=== PATIENT | female | born 1960 | race Caucasian/White ===

== ENCOUNTER 2016-08-05 12:49 | Outpatient (RCR) | payer OTHER ==
[2016-08-28] MEDS ORDERED: CYMBALTA 20MG20 MG PO (11:11)
[2016-08-28] MEDS ORDERED: COZAAR 50MG50 MG/TAB PO (11:12)
[2016-08-28] MEDS ORDERED: GLUCOPHAGE500 MG/TAB PO ×2 (11:12→11:13)
[2016-08-28] MEDS ORDERED: MOTRIN 200200 MG/TAB PO (11:13)
[2016-08-28] MEDS ORDERED: PRAVACHOL10 MG PO (11:13)
[2016-09-02] MEDS ORDERED: PRAVACHOL10 MG PO (18:54)
[2016-09-02] MEDS ORDERED: DECADRON 4MG TAB4 MG PO (18:55)
[2016-09-02] MEDS ORDERED: FOLIC ACID 11 MG/TA1 PO (18:56)
[2016-09-02] MEDS ORDERED: PEPCID 20MG TAB20 MG PO (18:56)
[2016-09-02] MEDS ORDERED: KEPPRA 500MG500 MG PO (18:57)
[2016-09-02] MEDS ORDERED: CYMBALTA 60MG60 MG PO (18:59)
[2016-09-02] MEDS ORDERED: XANAX 0.5MG0.5 MG PO (19:00)
[2016-09-02] MEDS ORDERED: NATURE'S BLEND100 M2 PO (19:02)
[2016-09-02] MEDS ORDERED: NICODERM C21 MG/PATC TD (19:02)
[2016-09-02] MEDS ORDERED: COLACE 100100 MG/CAP PO (19:03)
[2016-09-03] MEDS ORDERED: COREG 3.123.125 MG/T PO (18:21)
[2016-09-03] MEDS ORDERED: NOVOLOG FLEX100 U/ML SQ (18:21)
[2016-09-03] MEDS ORDERED: ZESTRIL2.5 MG PO (18:22)
[2016-09-03] MEDS ORDERED: THERAGRAN TAB1 UDTAB PO (18:23)
[2016-10-07] MEDS ORDERED: PEPCID 20MG TAB20 MG PO (10:23)
[2016-10-07] MEDS ORDERED: TYLENOL W/COD1 UDTAB PO (10:27)
== END 2016-11-03 ==
LOC: WSOH
DX: M25.521 Pain in right elbow (principal); S46.811A Strain of other muscles, fascia and tendons at shoulder and upper arm level, right arm, initial encounter; X50.3XXA Overexertion from repetitive movements, initial encounter; Y99.0 Civilian activity done for income or pay

== ENCOUNTER 2016-08-28 10:57 | Emergency (ER) | payer OTHER ==
[~2016-08-28] VITALS: Ht 177.8 cm; Wt 81.8 kg
[2016-08-28 10:58] VITALS: BP 190/102; TEMP 98
[2016-08-28] MEDS ORDERED: CYMBALTA 20MG20 MG PO (11:11)
[2016-08-28] MEDS ORDERED: GLUCOPHAGE500 MG/TAB PO ×2 (11:12→11:13)
[2016-08-28] MEDS ORDERED: COZAAR 50MG50 MG/TAB PO (11:12)
[2016-08-28] MEDS ORDERED: PRAVACHOL10 MG PO (11:13)
[2016-08-28] MEDS ORDERED: MOTRIN 200200 MG/TAB PO (11:13)
[2016-08-28 11:49] LABS: BASO # 0.1 (0.0-0.2); BASO % 1.2 % (0.0-2.0); EOS % 0.3 % (0-4.0); GRAN # 9.1 (1.4-6.5); GRAN % 85.4 % (42.2-75.2); HEMATOCRIT 39.7 % (37.0-47.0); HEMOGLOBIN 13.5 g/dl (12.5-16.0); LYMPH # 0.7 (1.2-3.4); LYMPH % 6.8 % (20.0-51.0); MEAN CELL VOLUME 102 fl (80.0-100.0); MEAN CORPUSCULAR HEMOGLOBIN 35 pg (27.0-31.0); MEAN CORPUSCULAR HGB CONC 34 g/dl (33.0-37.0); MEAN PLATELET VOLUME 10.9 fl (7.4-10.4); MONO # 0.6 (0.1-0.6); MONO % 5.8 % (1.7-9.3); PLATELET COUNT 209 K/mm3 (130-400); RED BLOOD COUNT 3.89 M/mm3 (4.10-5.30); REDCELL DISTRIBUTION WIDTH-CV 14.6 % (11.5-14.5); WHITE BLOOD COUNT 10.7 K/mm3 (4.8-10.8)
[2016-08-28 12:16] LABS: ADJUSTED CALCIUM 10.8 mg/dL (8.4-10.2); ALANINE AMINOTRANSFERASE 32 U/L (9-52); ALBUMIN 4.6 gm/dL (3.5-5.0); ALKALINE PHOSPHATASE 96 U/L (50-136); ANION GAP 24 mmol/L (7-16); BILIRUBIN,TOTAL 0.9 mg/dL (0.0-1.0); BLOOD UREA NITROGEN 19 mg/dL (7-17); CALCIUM 11.3 mg/dL (8.4-10.2); CARBON DIOXIDE 17 mmol/L (22-30); CHLORIDE 94 mmol/L (98-107); CREATININE, serum 1.07 mg/dL (0.52-1.25); GLUCOSE 248 mg/dL (74-106); POTASSIUM 5.6 mmol/L (3.4-5.0); SODIUM 135 mmol/L (137-145); TOTAL PROTEIN 7.5 gm/dL (6.4-8.2)
[2016-08-28 12:27] LABS: TROPONIN-I 0.015 ng/mL (0.000-0.034)
[2016-08-28 12:30] VITALS: PULSE 114
[2016-08-28 12:50] LABS: PROLACTIN 27.9 ng/mL (3.0-18.6)
== END 2016-08-28 13:08 | disposition short-term general hospital (02) ==
LOC: COL.ER 10:57
PROVIDERS: Emergency Medicine
DX: R55 Syncope and collapse (principal); R93.8 Abnormal findings on diagnostic imaging of other specified body structures; I10 Essential (primary) hypertension; E11.9 Type 2 diabetes mellitus without complications; R00.0 Tachycardia, unspecified; V47.5XXA Car driver injured in collision with fixed or stationary object in traffic accident, initial encounter; Y92.414 Local residential or business street as the place of occurrence of the external cause
CPT/HCPCS: J2060; J7030

== ENCOUNTER 2016-09-02 17:04 | Observation (INO) | payer OTHER ==
[~2016-09-02] VITALS: Ht 177.8 cm; Wt 87.3 kg
[2016-09-02] VITALS (120 sets, daily range): BP systolic 120–142; BP diastolic 83–100; PULSE 83–102; TEMP 98; O2SAT 95–100
[~2016-09-02 17:04] MED LIST: COZAAR 50MG50 MG/TAB PO; CYMBALTA 20MG20 MG PO; GLUCOPHAGE500 MG/TAB PO; MOTRIN 200200 MG/TAB PO; PRAVACHOL10 MG PO
[2016-09-02 18:52] LABS: BASO % 0.2 % (0.0-2.0); EOS % 0.2 % (0-4.0); GRAN # 11.1 (1.4-6.5); GRAN % 83.8 % (42.2-75.2); HEMATOCRIT 35.7 % (37.0-47.0); HEMOGLOBIN 12.2 g/dl (12.5-16.0); LYMPH # 0.9 (1.2-3.4); LYMPH % 6.9 % (20.0-51.0); MEAN CELL VOLUME 101 fl (80.0-100.0); MEAN CORPUSCULAR HEMOGLOBIN 35 pg (27.0-31.0); MEAN CORPUSCULAR HGB CONC 34 g/dl (33.0-37.0); MEAN PLATELET VOLUME 10.6 fl (7.4-10.4); MONO # 1.1 (0.1-0.6); MONO % 8.3 % (1.7-9.3); PLATELET COUNT 164 K/mm3 (130-400); RED BLOOD COUNT 3.53 M/mm3 (4.10-5.30); REDCELL DISTRIBUTION WIDTH-CV 14.5 % (11.5-14.5); WHITE BLOOD COUNT 13.3 K/mm3 (4.8-10.8)
[2016-09-02] MEDS ORDERED: PRAVACHOL10 MG PO (18:54)
[2016-09-02] MEDS ORDERED: DECADRON 4MG TAB4 MG PO (18:55)
[2016-09-02] MEDS ORDERED: PEPCID 20MG TAB20 MG PO (18:56)
[2016-09-02] MEDS ORDERED: FOLIC ACID 11 MG/TA1 PO (18:56)
[2016-09-02] MEDS ORDERED: KEPPRA 500MG500 MG PO (18:57)
[2016-09-02] MEDS ORDERED: CYMBALTA 60MG60 MG PO (18:59)
[2016-09-02] MEDS ORDERED: XANAX 0.5MG0.5 MG PO (19:00)
[2016-09-02 19:01] LABS: ADJUSTED CALCIUM 9.2 mg/dL (8.4-10.2); ALBUMIN 3.7 gm/dL (3.5-5.0); BILIRUBIN,TOTAL 0.6 mg/dL (0.0-1.0); CREATININE, serum 1.17 mg/dL (0.52-1.25); POTASSIUM 3.9 mmol/L (3.4-5.0); TOTAL PROTEIN 6.4 gm/dL (6.4-8.2)
[2016-09-02] MEDS ORDERED: NATURE'S BLEND100 M2 PO (19:02)
[2016-09-02] MEDS ORDERED: NICODERM C21 MG/PATC TD (19:02)
[2016-09-02] MEDS ORDERED: COLACE 100100 MG/CAP PO (19:03)
[2016-09-02 19:33] LABS: MAGNESIUM 1.6 mg/dL (1.6-2.3)
[2016-09-03] VITALS (380 sets, daily range): BP systolic 127–168; BP diastolic 64–98; PULSE 81–99; TEMP 97.3–97.6; O2SAT 89–100
[2016-09-03 06:57] LABS: B-TYPE NATRIURETIC PEPTIDE 3340 pg/mL (0-125)
[2016-09-03 07:00] LABS: TROPONIN-I < 0.012 ng/mL (0.000-0.034)
[2016-09-03] MEDS ORDERED: NOVOLOG FLEX100 U/ML SQ (18:21)
[2016-09-03] MEDS ORDERED: COREG 3.123.125 MG/T PO (18:21)
[2016-09-03] MEDS ORDERED: ZESTRIL2.5 MG PO (18:22)
[2016-09-03] MEDS ORDERED: THERAGRAN TAB1 UDTAB PO (18:23)
== END 2016-09-03 20:00 | disposition home or self-care (01) ==
LOC: COL.ER 17:04 → ICU 18:07
PROVIDERS: Emergency Medicine; Internal Medicine
DX: I42.9 Cardiomyopathy, unspecified (principal); F17.210 Nicotine dependence, cigarettes, uncomplicated; E11.9 Type 2 diabetes mellitus without complications; Z79.84 Long term (current) use of oral hypoglycemic drugs; I10 Essential (primary) hypertension
CPT/HCPCS: G0378; J2060; J3475; J8540

== ENCOUNTER → 2016-09-05 | Outpatient (CLI) | payer OTHER ==
[~2016-09-05] VITALS: Ht 177.8 cm; Wt 86.8 kg
[~2016-09-05] MED LIST changes: +COLACE 100100 MG/CAP PO; +COREG 3.123.125 MG/T PO; +CYMBALTA 60MG60 MG PO; +DECADRON 4MG TAB4 MG PO; +FOLIC ACID 11 MG/TA1 PO; +KEPPRA 500MG500 MG PO; +NATURE'S BLEND100 M2 PO; +NICODERM C21 MG/PATC TD; +NOVOLOG FLEX100 U/ML SQ; +PEPCID 20MG TAB20 MG PO; +THERAGRAN TAB1 UDTAB PO; +TYLENOL W/COD1 UDTAB PO; +XANAX 0.5MG0.5 MG PO; +ZESTRIL2.5 MG PO
[2016-09-05 08:07] VITALS: BP 134/84; PULSE 86
[2016-09-05 09:28] VITALS: BP 146/83; PULSE 80
[2016-09-05 09:29] VITALS: BP 125/64; PULSE 118
[2016-09-05 09:30] VITALS: BP 150/77; PULSE 110
[2016-09-05 09:32] VITALS: BP 141/78; PULSE 98
== END ==
LOC: COL.CARD 07:45
DX: I49.8 Other specified cardiac arrhythmias (principal); R94.39 Abnormal result of other cardiovascular function study
CPT/HCPCS: A9502; J2785

== ENCOUNTER 2016-10-07 09:39 | Day surgery (SDC) | payer OTHER ==
[2016-10-07] VITALS (8 sets, daily range): BP systolic 123–146; BP diastolic 73–92; PULSE 82–104; TEMP 98.4–99.7
[~2016-10-07] VITALS: Ht 177.8 cm; Wt 86.0 kg
[~2016-10-07 09:39] MED LIST changes: -TYLENOL W/COD1 UDTAB PO
[2016-10-07 10:16] LABS: HEMATOCRIT 38.8 % (37.0-47.0); HEMOGLOBIN 13.2 g/dl (12.5-16.0); MEAN CELL VOLUME 100 fl (80.0-100.0); MEAN CORPUSCULAR HEMOGLOBIN 34 pg (27.0-31.0); MEAN CORPUSCULAR HGB CONC 34 g/dl (33.0-37.0); MEAN PLATELET VOLUME 10.2 fl (7.4-10.4); PLATELET COUNT 297 K/mm3 (130-400); REDCELL DISTRIBUTION WIDTH-CV 12.9 % (11.5-14.5); WHITE BLOOD COUNT 7.8 K/mm3 (4.8-10.8)
[2016-10-07] MEDS ORDERED: PEPCID 20MG TAB20 MG PO (10:23)
[2016-10-07 10:25] LABS: CALCIUM 10.1 mg/dL (8.4-10.2); CREATININE, serum 1.14 mg/dL (0.52-1.25); POTASSIUM 4.4 mmol/L (3.4-5.0)
[2016-10-07] MEDS ORDERED: TYLENOL W/COD1 UDTAB PO (10:27)
[2016-10-07 10:32] LABS: PROTHROMBIN TIME 10.5 SECONDS (9.7-12.8)
== END 2016-10-07 15:54 | disposition home or self-care (01) ==
LOC: COL.CAR 09:39
PROVIDERS: Internal Medicine Cardiovascular Disease
DX: I42.9 Cardiomyopathy, unspecified (principal); F17.200 Nicotine dependence, unspecified, uncomplicated; I11.0 Hypertensive heart disease with heart failure; I50.9 Heart failure, unspecified; E11.9 Type 2 diabetes mellitus without complications; E78.5 Hyperlipidemia, unspecified; Z86.011 Personal history of benign neoplasm of the brain; Z79.84 Long term (current) use of oral hypoglycemic drugs; Z79.899 Other long term (current) drug therapy
CPT/HCPCS: C1769; C1887; C1894; J1644; J2250; J3010; Q9967

== ENCOUNTER → 2016-11-24 | Outpatient (CLI) | payer OTHER ==
[~2016-11-24] MED LIST changes: +TYLENOL W/COD1 UDTAB PO
== END ==
LOC: COL.RAD 09:49
DX: R91.8 Other nonspecific abnormal finding of lung field (principal)
CPT/HCPCS: Q9967

== ENCOUNTER → 2017-04-29 | Outpatient (CLI) | payer SELFPAY | LOC: COL.RAD 07:38 | DX: Z01.812 Encounter for preprocedural laboratory examination (principal); G93.89 Other specified disorders of brain; D32.9 Benign neoplasm of meninges, unspecified; Z98.890 Other specified postprocedural states | CPT/HCPCS: A9585 ==

== ENCOUNTER → 2017-05-12 | Outpatient (CLI) | payer SELFPAY | LOC: MHCPAIN 14:04 | DX: G89.29 Other chronic pain (principal); M47.812 Spondylosis without myelopathy or radiculopathy, cervical region; M96.1 Postlaminectomy syndrome, not elsewhere classified; F17.200 Nicotine dependence, unspecified, uncomplicated | CPT/HCPCS: G0463 ==

== ENCOUNTER → 2017-05-26 | Outpatient (CLI) | payer SELFPAY | LOC: COL.RAD 12:39 | DX: R91.1 Solitary pulmonary nodule (principal); J98.4 Other disorders of lung | CPT/HCPCS: Q9967 ==

== ENCOUNTER → 2017-06-04 | Outpatient (CLI) | payer SELFPAY | LOC: MHCPAIN 08:39 | DX: M50.123 Cervical disc disorder at C6-C7 level with radiculopathy (principal); M99.51 Intervertebral disc stenosis of neural canal of cervical region; M25.78 Osteophyte, vertebrae; Z98.1 Arthrodesis status | CPT/HCPCS: J1100; J2250; J3010; Q9967 ==

== ENCOUNTER → 2017-06-23 | Outpatient (CLI) | payer SELFPAY | LOC: MHCPAIN 09:13 | DX: G89.29 Other chronic pain (principal); M50.122 Cervical disc disorder at C5-C6 level with radiculopathy; M96.1 Postlaminectomy syndrome, not elsewhere classified; F17.200 Nicotine dependence, unspecified, uncomplicated | CPT/HCPCS: G0463 ==

== ENCOUNTER → 2017-07-23 | Outpatient (CLI) | payer SELFPAY | LOC: MHCPAIN 13:08 | DX: M50.122 Cervical disc disorder at C5-C6 level with radiculopathy (principal); M99.51 Intervertebral disc stenosis of neural canal of cervical region; Z98.1 Arthrodesis status | CPT/HCPCS: J1100; J2250; J3010; Q9967 ==

== ENCOUNTER → 2017-08-14 | Outpatient (CLI) | payer SELFPAY | LOC: MHCPAIN 10:15 | DX: G89.29 Other chronic pain (principal); M50.90 Cervical disc disorder, unspecified, unspecified cervical region; M54.12 Radiculopathy, cervical region; M96.1 Postlaminectomy syndrome, not elsewhere classified | CPT/HCPCS: G0463 ==

== ENCOUNTER → 2017-10-12 | Outpatient (CLI) | payer SELFPAY | LOC: MHCPAIN 09:53 | DX: G89.29 Other chronic pain (principal); M50.90 Cervical disc disorder, unspecified, unspecified cervical region; M54.12 Radiculopathy, cervical region; R51 Headache; M96.1 Postlaminectomy syndrome, not elsewhere classified | CPT/HCPCS: G0463 ==

== ENCOUNTER → 2017-12-14 | Outpatient (CLI) | payer SELFPAY | LOC: MHCPAIN 10:14 | DX: G89.29 Other chronic pain (principal); M50.90 Cervical disc disorder, unspecified, unspecified cervical region; M54.12 Radiculopathy, cervical region; M54.81 Occipital neuralgia; R51 Headache; M96.1 Postlaminectomy syndrome, not elsewhere classified | CPT/HCPCS: G0463 ==

== ENCOUNTER → 2018-02-16 | Outpatient (CLI) | payer MEDICARE | LOC: MHCPAIN 08:57 | DX: G89.29 Other chronic pain (principal); M50.90 Cervical disc disorder, unspecified, unspecified cervical region; M54.12 Radiculopathy, cervical region; M96.1 Postlaminectomy syndrome, not elsewhere classified | CPT/HCPCS: G0463 ==

== ENCOUNTER → 2018-04-13 | Outpatient (CLI) | payer MEDICARE, OTHER | LOC: MHCPAIN 09:31 | DX: G89.29 Other chronic pain (principal); M50.90 Cervical disc disorder, unspecified, unspecified cervical region; M54.12 Radiculopathy, cervical region; M54.81 Occipital neuralgia | CPT/HCPCS: G0463 ==

== ENCOUNTER → 2018-06-09 | Outpatient (CLI) | payer MEDICARE, OTHER | LOC: MHCPAIN 09:27 | DX: G89.29 Other chronic pain (principal); M54.12 Radiculopathy, cervical region; M54.81 Occipital neuralgia; R51 Headache; M47.812 Spondylosis without myelopathy or radiculopathy, cervical region | CPT/HCPCS: G0463 ==

== ENCOUNTER → 2018-08-10 | Outpatient (CLI) | payer MEDICARE, OTHER | LOC: MHCPAIN 09:33 | DX: G89.29 Other chronic pain (principal); M54.12 Radiculopathy, cervical region; R51 Headache; M47.812 Spondylosis without myelopathy or radiculopathy, cervical region; M96.1 Postlaminectomy syndrome, not elsewhere classified | CPT/HCPCS: G0463 ==

== ENCOUNTER → 2018-09-02 | Outpatient (CLI) | payer MEDICARE, OTHER | LOC: MHCPAIN 09:09 | DX: M54.12 Radiculopathy, cervical region (principal); M47.812 Spondylosis without myelopathy or radiculopathy, cervical region; M50.90 Cervical disc disorder, unspecified, unspecified cervical region | CPT/HCPCS: J1100; Q9967 ==

== ENCOUNTER → 2018-10-05 | Outpatient (CLI) | payer MEDICARE, OTHER | LOC: MHCPAIN 09:44 | DX: G89.29 Other chronic pain (principal); M54.12 Radiculopathy, cervical region; M54.81 Occipital neuralgia; R51 Headache; M47.812 Spondylosis without myelopathy or radiculopathy, cervical region; M96.1 Postlaminectomy syndrome, not elsewhere classified | CPT/HCPCS: G0463 ==

== ENCOUNTER → 2018-10-21 | Outpatient (CLI) | payer MEDICARE, OTHER | LOC: MHCPAIN 09:15 | DX: M47.812 Spondylosis without myelopathy or radiculopathy, cervical region (principal); M54.12 Radiculopathy, cervical region | CPT/HCPCS: J1100; Q9967 ==

== ENCOUNTER → 2018-12-27 | Outpatient (CLI) | payer MEDICARE, OTHER | LOC: MHCPAIN 08:54 | DX: G89.29 Other chronic pain (principal); M54.12 Radiculopathy, cervical region; R51 Headache; M47.812 Spondylosis without myelopathy or radiculopathy, cervical region; M96.1 Postlaminectomy syndrome, not elsewhere classified | CPT/HCPCS: G0463 ==

== ENCOUNTER → 2019-03-28 | Outpatient (CLI) | payer MEDICARE, OTHER | LOC: MHCPAIN 09:15 | DX: G89.29 Other chronic pain (principal); M54.12 Radiculopathy, cervical region; M54.81 Occipital neuralgia; R51 Headache; M47.812 Spondylosis without myelopathy or radiculopathy, cervical region | CPT/HCPCS: G0463 ==

== ENCOUNTER → 2021-07-03 | Outpatient (CLI) | payer MEDICARE | LOC: COL.RAD 06-26 13:30 | DX: Z12.2 Encounter for screening for malignant neoplasm of respiratory organs (principal); F17.210 Nicotine dependence, cigarettes, uncomplicated ==

== ENCOUNTER → 2022-07-15 | Outpatient (CLI) | payer MEDICARE | LOC: COL.RAD 13:56 | DX: Z12.2 Encounter for screening for malignant neoplasm of respiratory organs (principal); F17.210 Nicotine dependence, cigarettes, uncomplicated ==